=== PATIENT | male | born 1970 | race Caucasian/White ===

== ENCOUNTER 2019-09-24 21:48 | Inpatient (IN) | payer SELFPAY ==
[~2019-09-24] VITALS: Ht 185.4 cm; Wt 66.9 kg
[2019-09-24] MEDS ORDERED: cloNIDine HCL 0.1 MG TABLET PO ONE (22:30)
[2019-09-24] MEDS ORDERED: LABETALOL 20 MG/4 ML DISP.SYRIN. IVP ONE (22:30)
[2019-09-24 22:43] LABS: BASO # 0.1 x10^3/uL (0.0-0.2); BASO % 1 % (0-3); EOS # 0.1 x10^3/uL (0.0-0.7); EOS % 1 % (0-3); HEMATOCRIT 41.2 % (39.0-53.0); HEMOGLOBIN 14.1 g/dL (13.0-17.5); LYMPH # 2.7 x10^3/uL (1.0-4.8); LYMPH % 34 % (24-48); MEAN CORPUSCULAR HEMOGLOBIN 30 pg (25-35); MEAN CORPUSCULAR HGB CONC 34 g/dL (31-37); MEAN CORPUSCULAR VOLUME 87 fL (79-100); MONO # 0.7 x10^3/uL (0.0-1.1); MONO % 9 % (0-9); NEUT # 4.4 x10^3/uL (1.8-7.7); NEUT % 55 % (31-73); PLATELET COUNT 248 x10^3/uL (140-400); RED BLOOD COUNT 4.72 x10^6/uL (4.30-5.70); RED CELL DISTRIBUTION WIDTH 13.8 % (11.5-14.5)
[2019-09-24 22:55] LABS: CALCIUM 9.1 mg/dL (8.5-10.1); CREATININE 1.7 mg/dL (0.7-1.3); GFR 42.7; POTASSIUM 3.5 mmol/L (3.5-5.1)
[2019-09-24 23:01] LABS: ALBUMIN 3.7 g/dL (3.4-5.0); ALBUMIN/GLOBULIN RATIO 1.1 (1.0-1.7); MAGNESIUM 1.9 mg/dL (1.8-2.4); TOTAL BILIRUBIN 0.3 mg/dL (0.2-1.0); TOTAL PROTEIN 7.2 g/dL (6.4-8.2)
[2019-09-24] MEDS ORDERED: hydrALAZINE 20 MG/ML VIAL. IVP PRN (23:30)
[2019-09-24] MEDS ORDERED: ASPIRIN 325 MG TABLET PO ONE (23:30)
[2019-09-24] MEDS ORDERED: hydrALAZINE 20 MG/ML VIAL. IVP ONE (23:30)
--- NOTE | 2019-09-24 23:45 | PHYS DOC ---
Past Medical History Past Medical History: Bipolar, Hypertension, Schizophrenia Past Surgical History: Other Additional Past Surgical Histo: NECK SURGERY Smoking: Cigarettes Alcohol Use: None Drug Use: Methamphetamine Social History Narrative: METH OVER 7 YEARS AGO Adult General Chief Complaint Chief Complaint: HYPERTENSION HPI HPI 49-year-old male presents with report of elevated blood pressure. Patient had presented to [facility] for treatment of his schizophrenia. Reports they took his blood pressure and noted it significantly elevated. Patient does have a history of hypertension for which he was previously prescribed medication. Reports he has been off his medication for the last year. Denies headache. Denies chest pain. Review of Systems Review of Systems Constitutional: Denies fever or chills Eyes: Denies redness or eye pain HENT: Denies nasal congestion or sore throat Respiratory: Denies cough or shortness of breath Cardiovascular: Denies chest pain or palpitations GI: Denies abdominal pain, nausea, or vomiting : Denies dysuria or hematuria Musculoskeletal: Denies back pain or joint pain Integument: Denies rash or skin lesions Neurologic: Denies headache, focal weakness or sensory changes Complete systems were reviewed and found to be within normal limits, except as documented in this note. Current Medications Current Medications Current Medications Medications (Trade) Dose Ordered Sig/Julio Start Time Stop Time Status Last Admin Dose Admin Clonidine HCl (Catapres) 0.1 mg 1X ONCE 09/24/19 22:30 09/24/19 22:31 DC 09/24/19 22:44 0.1 MG Labetalol HCl (Normodyne Iv Push) 10 mg 1X ONCE 09/24/19 22:30 09/24/19 22:31 DC 09/24/19 22:45 10 MG Allergies Allergies Allergies Coded Allergies Type Severity Reaction Last Updated Verified codeine Allergy Intermediate 09/24/19 Yes Physical Exam Physical Exam Constitutional: Well developed, well nourished, no acute distress, non-toxic a ppearance HENT: Normocephalic, atraumatic, oropharynx moist Eyes: Conjunctiva normal, no discharge Neck: Normal range of motion, no tenderness, supple Cardiovascular: Heart rate normal, regular rhythm Lungs & Thorax: Bilateral breath sounds clear to auscultation, no wheezing Abdomen: Soft, no tenderness Skin: Warm, dry, no erythema, no rash Extremities: No tenderness, ROM intact, no edema Neurologic: Alert and oriented X 3, normal motor function, normal sensory function, no focal deficits noted Psychologic: Affect normal, judgement normal Current Patient Data Vital Signs Vital Signs Date Time Temp Pulse Resp B/P (MAP) Pulse Ox O2 Delivery O2 Flow Rate FiO2 09/24/19 22:45 62 193/110 09/24/19 22:02 98.3 20 97 Room Air 98.3 Lab Values Laboratory Tests Test 09/24/19 22:28 White Blood Count 8.0 x10^3/uL (4.0-11.0) Red Blood Count 4.72 x10^6/uL (4.30-5.70) Hemoglobin 14.1 g/dL (13.0-17.5) Hematocrit 41.2 % (39.0-53.0) Mean Corpuscular Volume 87 fL (79-100) Mean Corpuscular Hemoglobin 30 pg (25-35) Mean Corpuscular Hemoglobin Concent 34 g/dL (31-37) Red Cell Distribution Width 13.8 % (11.5-14.5) Platelet Count 248 x10^3/uL (140-400) Neutrophils (%) (Auto) 55 % (31-73) Lymphocytes (%) (Auto) 34 % (24-48) Monocytes (%) (Auto) 9 % (0-9) Eosinophils (%) (Auto) 1 % (0-3) Basophils (%) (Auto) 1 % (0-3) Neutrophils # (Auto) 4.4 x10^3/uL (1.8-7.7) Lymphocytes # (Auto) 2.7 x10^3/uL (1.0-4.8) Monocytes # (Auto) 0.7 x10^3/uL (0.0-1.1) Eosinophils # (Auto) 0.1 x10^3/uL (0.0-0.7) Basophils # (Auto) 0.1 x10^3/uL (0.0-0.2) Sodium Level 142 mmol/L (136-145) Potassium Level 3.5 mmol/L (3.5-5.1) Chloride Level 106 mmol/L (98-107) Carbon Dioxide Level 27 mmol/L (21-32) Anion Gap 9 (6-14) Blood Urea Nitrogen 24 mg/dL (8-26) Creatinine 1.7 mg/dL (0.7-1.3) H Estimated GFR (Cockcroft-Gault) 42.7 BUN/Creatinine Ratio 14 (6-20) Glucose Level 101 mg/dL (70-99) H Calcium Level 9.1 mg/dL (8.5-10.1) Magnesium Level 1.9 mg/dL (1.8-2.4) Total Bilirubin 0.3 mg/dL (0.2-1.0) Aspartate Amino Transferase (AST) 10 U/L (15-37) L Alanine Aminotransferase (ALT) 11 U/L (16-63) L Alkaline Phosphatase 61 U/L (46-116) Creatine Kinase 81 U/L (39-308) Creatine Kinase MB (Mass) 1.1 ng/mL (0.0-3.6) Creatine Kinase MB Relative Index 1.4 % (0-4) Troponin I Quantitative 0.154 ng/mL (0.000-0.055) Total Protein 7.2 g/dL (6.4-8.2) Albumin 3.7 g/dL (3.4-5.0) Albumin/Globulin Ratio 1.1 (1.0-1.7) Laboratory Tests 09/24/19 22:28 Laboratory Tests 09/24/19 22:28 EKG EKG @2238 Sinus bradycardia at 52bpm, J point elevation V2-V3, QRS 88ms, QT/QTc 434/406ms, nonspecific t wave inversion V5-V6 @2350 NSR at 79bpm, NO ST elevation, t wave inversion II, aVF, and V4-V6 Radiology/Procedures Radiology/Procedures [] Course & Med Decision Making Course & Med Decision Making Pertinent Lab studies reviewed. (See chart for details) Patient presents with report of elevated blood pressure. Denies symptoms. Reports history of hypertension for which patient has not been taking his medication. Denies headache or chest pain. EKG stable. Labs obtained and posted to chart. Renal insufficiency and indeterminate troponin noted. Aspirin provided. Blood pressure addressed with interval improvement. Patient requiring admission for further evaluation and treatment. Discussed with Dr. Blackman (hospitalist) who is in agreement with admission. Discussed findings and plan with patient, who acknowledges understanding and agreement. Dragon Disclaimer Dragon Disclaimer This electronic medical record was generated, in whole or in part, using a voice recognition dictation system. Departure Departure Impression: Primary Impression: Hypertensive emergency Additional Impressions: Elevated troponin Renal insufficiency Disposition: ADMITTED INPATIENT Admitting Physician: MARY ELLEN Stanley) Condition: GUARDED Referrals: NO PCP (PCP) Critical Care Time Critical care time was 30 minutes which includes time at bedside, spent in discussion of patient's care with specialists and/or family members, with interpretation of laboratory and/or radiological studies and is exclusive of procedures. Problem Qualifiers JASWANT BUCKLEY DO Sep 24, 2019 23:45
[2019-09-25] VITALS (8 sets, daily range): BP systolic 142–187; BP diastolic 85–110
[2019-09-25] MEDS ORDERED: PALI117D IM (00:37)
[2019-09-25] MEDS ORDERED: ACET325T9 PO (01:29)
[2019-09-25] MEDS ORDERED: IBUP-1027 PO (01:29)
--- NOTE | 2019-09-25 07:06 | EKG ---
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
--- NOTE | 2019-09-25 07:06 | EKG ---
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
[2019-09-25] MEDS ORDERED: FLU VAX QS 2019-20 (36MOS+)/PF 0.5 ML SYRINGE. VAX IM ONE (09:00)
[2019-09-25] MEDS ORDERED: ACETAMINOPHEN 325 MG TABLET. PO PRN (09:30)
[2019-09-25] MEDS ORDERED: hydrALAZINE 20 MG/ML VIAL. IVP PRN (09:30)
--- NOTE | 2019-09-25 10:39 | PDOC1 ---
History and Physical Date of Admission Date of Admission DATE: 09/25/19 TIME: 10:34 Identification/Chief Complaint Chief Complaint on his way to [facility] but BP high Source Source: Caregiver, Chart review, Patient History of Present Illness History of Present Illness HE is on his way to [facility] for BIpoal/schizophrenia, takes unknown mg of lexapro but SCARLETT high, 180s so admitted bec needs medical clearance prior to RSI, Pt not taking any BP meds, or at elast was supposed to but not taking for very long time, Im unable to get his home lexapro dose too No sxs for high BP,. appears flushed but denoes headache, BOV, napa pain etc HE occ drinks and smokes < 1 pack a day FAm hx HTN NO signif surgical hx Past Medical History Cardiovascular: HTN Psych: Bipolar, Schizophrenia Past Surgical History Past Surgical History: No pertinent history Family History Family History: High Cholestrol, Hypertension Social History Smoke: <1 pack per day ALCOHOL: occassional Current Medications Current Medications Current Medications Clonidine HCl (Catapres) 0.1 mg 1X ONCE PO Last administered on 09/24/19at 22:44; Start 09/24/19 at 22:30; Stop 09/24/19 at 22:31; Status DC Labetalol HCl (Normodyne Iv Push) 10 mg 1X ONCE IVP Last administered on 09/24/19at 22:45; Start 09/24/19 at 22:30; Stop 09/24/19 at 22:31; Status DC Aspirin (Justice Aspirin) 325 mg 1X ONCE PO Last administered on 09/24/19at 23:20; Start 09/24/19 at 23:30; Stop 09/24/19 at 23:31; Status DC Hydralazine HCl (Apresoline Inj) 20 mg 1X ONCE IVP Last administered on 09/24/19at 23:32; Start 09/24/19 at 23:30; Stop 09/24/19 at 23:31; Status DC Hydralazine HCl (Apresoline Inj) 10 mg PRN Q4HRS PRN IVP ELEVATED BP, SEE COMMENTS Last administered on 09/25/19at 09:06; Start 09/24/19 at 23:30; Stop 09/25/19 at 09:24; Status DC Influenza Virus Vaccine Quadrival (Afluria Quad 2019-20 (3yr Up) Syringe) 0.5 ml ONCE ONCE VAX IM Last administered on 09/25/19at 09:07; Start 09/25/19 at 09:00; Stop 09/25/19 at 09:01; Status DC Hydralazine HCl (Apresoline Inj) 10 mg PRN Q4HRS PRN IVP ELEVATED BP, SEE COMMENTS; Start 09/25/19 at 09:30 Acetaminophen (Tylenol) 650 mg PRN Q6HRS PRN PO PAIN; Start 09/25/19 at 09:30 Active Scripts Active Reported Tylenol (Acetaminophen) 325 Mg Tablet 650 Mg PO PRN Q6HRS PRN Ibuprofen 400 Mg Tablet 400 Mg PO PRN Q6HRS PRN Invega Sustenna (Paliperidone Palmitate) 117 Mg/0.75 Ml Disp.syrin 0.75 Ml IM QMONTH 30 Days Allergies Allergies: Coded Allergies: codeine (Verified Allergy, Intermediate, 09/24/19) ROS Review of System neg 14 pt reviewed Physical Exam General: Alert, Oriented X3, Cooperative, No acute distress, Other (ppears flushed) HEENT: PERRLA Lungs: Clear to auscultation, Normal air movement Heart: S1S2, RRR, no thrills, no rubs, no gallops, no murmurs Cardiovascular: S1, S2 Abdomen: Normal bowel sounds, Soft, No tenderness, No hepatosplenomegaly, No masses Male Genitals Exam: normal genitalia, normal prostate Rectal Exam: not examined PELVIC: Nml ext genitalia Extremities: No clubbing, No cyanosis, No edema, Normal pulses, No tenderness/swelling Skin: No rashes, No breakdown, No significant lesion Neuro: Normal gait, Normal speech, Strength at 5/5 X4 ext, Normal tone, Sensation intact, Cranial nerves 3-12 NL, Reflexes 2+ Vitals Vitals Vital Signs Date Time Temp Pulse Resp B/P (MAP) Pulse Ox O2 Delivery O2 Flow Rate FiO2 09/25/19 09:06 60 187/110 09/25/19 07:00 97.7 20 99 Room Air 97.7 Labs Labs Laboratory Tests Test 09/24/19 22:28 09/25/19 03:33 09/25/19 05:48 09/25/19 06:30 White Blood Count 8.0 x10^3/uL (4.0-11.0) Red Blood Count 4.72 x10^6/uL (4.30-5.70) Hemoglobin 14.1 g/dL (13.0-17.5) Hematocrit 41.2 % (39.0-53.0) Mean Corpuscular Volume 87 fL (79-100) Mean Corpuscular Hemoglobin 30 pg (25-35) Mean Corpuscular Hemoglobin Concent 34 g/dL (31-37) Red Cell Distribution Width 13.8 % (11.5-14.5) Platelet Count 248 x10^3/uL (140-400) Neutrophils (%) (Auto) 55 % (31-73) Lymphocytes (%) (Auto) 34 % (24-48) Monocytes (%) (Auto) 9 % (0-9) Eosinophils (%) (Auto) 1 % (0-3) Basophils (%) (Auto) 1 % (0-3) Neutrophils # (Auto) 4.4 x10^3/uL (1.8-7.7) Lymphocytes # (Auto) 2.7 x10^3/uL (1.0-4.8) Monocytes # (Auto) 0.7 x10^3/uL (0.0-1.1) Eosinophils # (Auto) 0.1 x10^3/uL (0.0-0.7) Basophils # (Auto) 0.1 x10^3/uL (0.0-0.2) Sodium Level 142 mmol/L (136-145) Potassium Level 3.5 mmol/L (3.5-5.1) Chloride Level 106 mmol/L (98-107) Carbon Dioxide Level 27 mmol/L (21-32) Anion Gap 9 (6-14) Blood Urea Nitrogen 24 mg/dL (8-26) Creatinine 1.7 mg/dL (0.7-1.3) Estimated GFR (Cockcroft-Gault) 42.7 BUN/Creatinine Ratio 14 (6-20) Glucose Level 101 mg/dL (70-99) Calcium Level 9.1 mg/dL (8.5-10.1) Magnesium Level 1.9 mg/dL (1.8-2.4) Total Bilirubin 0.3 mg/dL (0.2-1.0) Aspartate Amino Transf (AST/SGOT) 10 U/L (15-37) Alanine Aminotransferase (ALT/SGPT) 11 U/L (16-63) Alkaline Phosphatase 61 U/L (46-116) Creatine Kinase 81 U/L (39-308) Creatine Kinase MB (Mass) 1.1 ng/mL (0.0-3.6) Creatine Kinase MB Relative Index 1.4 % (0-4) Troponin I Quantitative 0.154 ng/mL (0.000-0.055) 0.173 ng/mL (0.000-0.055) 0.201 ng/mL (0.000-0.055) Total Protein 7.2 g/dL (6.4-8.2) Albumin 3.7 g/dL (3.4-5.0) Albumin/Globulin Ratio 1.1 (1.0-1.7) Triglycerides Level 184 mg/dL (0-150) Cholesterol Level 160 mg/dL (0-200) LDL Cholesterol, Calculated 83 mg/dL (0-100) VLDL Cholesterol, Calculated 37 mg/dL (0-40) Non-HDL Cholesterol Calculated 120 mg/dL (0-129) HDL Cholesterol 40 mg/dL (40-60) Cholesterol/HDL Ratio 4.0 Laboratory Tests Test 09/24/19 22:28 09/25/19 03:33 09/25/19 05:48 09/25/19 06:30 White Blood Count 8.0 x10^3/uL (4.0-11.0) Red Blood Count 4.72 x10^6/uL (4.30-5.70) Hemoglobin 14.1 g/dL (13.0-17.5) Hematocrit 41.2 % (39.0-53.0) Mean Corpuscular Volume 87 fL (79-100) Mean Corpuscular Hemoglobin 30 pg (25-35) Mean Corpuscular Hemoglobin Concent 34 g/dL (31-37) Red Cell Distribution Width 13.8 % (11.5-14.5) Platelet Count 248 x10^3/uL (140-400) Neutrophils (%) (Auto) 55 % (31-73) Lymphocytes (%) (Auto) 34 % (24-48) Monocytes (%) (Auto) 9 % (0-9) Eosinophils (%) (Auto) 1 % (0-3) Basophils (%) (Auto) 1 % (0-3) Neutrophils # (Auto) 4.4 x10^3/uL (1.8-7.7) Lymphocytes # (Auto) 2.7 x10^3/uL (1.0-4.8) Monocytes # (Auto) 0.7 x10^3/uL (0.0-1.1) Eosinophils # (Auto) 0.1 x10^3/uL (0.0-0.7) Basophils # (Auto) 0.1 x10^3/uL (0.0-0.2) Sodium Level 142 mmol/L (136-145) Potassium Level 3.5 mmol/L (3.5-5.1) Chloride Level 106 mmol/L (98-107) Carbon Dioxide Level 27 mmol/L (21-32) Anion Gap 9 (6-14) Blood Urea Nitrogen 24 mg/dL (8-26) Creatinine 1.7 mg/dL (0.7-1.3) Estimated GFR (Cockcroft-Gault) 42.7 BUN/Creatinine Ratio 14 (6-20) Glucose Level 101 mg/dL (70-99) Calcium Level 9.1 mg/dL (8.5-10.1) Magnesium Level 1.9 mg/dL (1.8-2.4) Total Bilirubin 0.3 mg/dL (0.2-1.0) Aspartate Amino Transf (AST/SGOT) 10 U/L (15-37) Alanine Aminotransferase (ALT/SGPT) 11 U/L (16-63) Alkaline Phosphatase 61 U/L (46-116) Creatine Kinase 81 U/L (39-308) Creatine Kinase MB (Mass) 1.1 ng/mL (0.0-3.6) Creatine Kinase MB Relative Index 1.4 % (0-4) Troponin I Quantitative 0.154 ng/mL (0.000-0.055) 0.173 ng/mL (0.000-0.055) 0.201 ng/mL (0.000-0.055) Total Protein 7.2 g/dL (6.4-8.2) Albumin 3.7 g/dL (3.4-5.0) Albumin/Globulin Ratio 1.1 (1.0-1.7) Triglycerides Level 184 mg/dL (0-150) Cholesterol Level 160 mg/dL (0-200) LDL Cholesterol, Calculated 83 mg/dL (0-100) VLDL Cholesterol, Calculated 37 mg/dL (0-40) Non-HDL Cholesterol Calculated 120 mg/dL (0-129) HDL Cholesterol 40 mg/dL (40-60) Cholesterol/HDL Ratio 4.0 VTE Prophylaxis Ordered VTE Prophylaxis Devices: Yes VTE Pharmacological Prophylaxi: Yes Assessment/Plan Assessment/Plan 1. Accelerated HTN 2. Bipolar/schizophrenia 3. SMOker, occ drinker PLAN: Start lisinopril 10 and hctz 12.5 Hydralazine prn CArds consulted Ok to resume lexapro Edgardo patch MAyc heck etoh levels - appears flushed Librium prn MARSHA GAONA MD Sep 25, 2019 10:39
[2019-09-25] MEDS ORDERED: chlordiazePOXIDE HCL 25 MG CAPSULE PO PRN (10:45)
[2019-09-25] MEDS: LISINOPRIL 10 MG TABLET PO SCH (11:19)
[2019-09-25] MEDS: hydroCHLOROthiazide 12.5 MG CAPSULE PO SCH (11:19)
--- NOTE | 2019-09-25 13:17 | PDOC2 ---
CARDIAC CONSULT DATE OF CONSULT Date of Consult DATE: 09/25/19 TIME: 12:48 REASON FOR CONSULT Reason for Consult: HTN emergence, elevated trop REFERRING PHYSICIAN Referring Physician: elevated trop SOURCE Source: Chart review, Patient HISTORY OF PRESENT ILLNESS HISTORY OF PRESENT ILLNESS This is a pleasant 49 yo male admitted for complains of high blood pressure. He was getting checked in in a support facility for he has bipolar and basically homeless and noted that his BP was significantly high. Reports juwan he has been off his BP meds for about a yr. He was at [facility] last year when he was told that he had a stroke. No hx of CAD or any arrhythmias. So far he has not been having any chest pain, SOA, no exertional CP nor WILKERSON. Denies any palpitations, n/v, jaw or shoulder discomfort. He has been having throbbing intermittent WALKER which is now better since his BP was controlled. PAST MEDICAL HISTORY Cardiovascular: HTN Pulmonary: No pertinent hx CENTRAL NERVOUS SYSTEM: CVA GI: No pertinent hx Heme/Onc: No pertinent hx Hepatobiliary: No pertinent hx Psych: Bipolar, Schizophrenia Musculoskeletal: Osteoarthritis Rheumatologic: No pertinent hx Infectious disease: No pertinent hx ENT: No pertinent hx Renal/: No pertinent hx Endocrine: No pertinent hx Dermatology: No pertinent hx PAST SURGICAL HISTORY Past Surgical History: Arthroscopy (left knee), Other (neck and wrist surgery) FAMILY HISTORY Family History: Coronary Artery Disease (grandmother) SOCIAL HISTORY Smoke: 1 pack per day ALCOHOL: none Drugs: None Lives: Alone CURRENT MEDICATIONS CURRENT MEDICATIONS Current Medications Medications (Trade) Dose Ordered Sig/Julio Route PRN Reason Start Time Stop Time Status Last Admin Dose Admin Clonidine HCl (Catapres) 0.1 mg 1X ONCE PO 09/24/19 22:30 09/24/19 22:31 DC 09/24/19 22:44 Labetalol HCl (Normodyne Iv Push) 10 mg 1X ONCE IVP 09/24/19 22:30 09/24/19 22:31 DC 09/24/19 22:45 Aspirin (Justice Aspirin) 325 mg 1X ONCE PO 09/24/19 23:30 09/24/19 23:31 DC 09/24/19 23:20 Hydralazine HCl (Apresoline Inj) 20 mg 1X ONCE IVP 09/24/19 23:30 09/24/19 23:31 DC 09/24/19 23:32 Hydralazine HCl (Apresoline Inj) 10 mg PRN Q4HRS PRN IVP ELEVATED BP, SEE COMMENTS 09/24/19 23:30 09/25/19 09:24 DC 09/25/19 09:06 Influenza Virus Vaccine Quadrival (Afluria Quad 2019-20 (3yr Up) Syringe) 0.5 ml ONCE ONCE VAX IM 09/25/19 09:00 09/25/19 09:01 DC 09/25/19 09:07 Lisinopril (Prinivil) 10 mg DAILY PO 09/25/19 10:45 09/25/19 11:19 Hydrochlorothiazide (Microzide) 12.5 mg DAILY PO 09/25/19 10:45 09/25/19 11:19 ALLERGIES ALLERGIES: Coded Allergies: codeine (Verified Allergy, Intermediate, 09/24/19) ROS Review of System 14 point ROS evaluated with pertinent positives noted per HPI PHYSICAL EXAM General: Alert, Oriented X3, Cooperative, No acute distress HEENT: Atraumatic, Mucous membr. moist/pink Lungs: Clear to auscultation, Normal air movement Heart: Regular rate (SR), Normal S1, Normal S2, Other (S4; 3/6 systolic murmur to SELINA border) Abdomen: Soft, No tenderness Extremities: No cyanosis, No edema Skin: No breakdown, No significant lesion Neuro: Normal speech, Sensation intact Psych/Mental Status: Mental status NL, Mood NL MUSCULOSKELETAL: Osteoarthritic changes both hands VITALS/I&O VITALS/I&O: Vital Signs Date Time Temp Pulse Resp B/P (MAP) Pulse Ox O2 Delivery O2 Flow Rate FiO2 09/25/19 11:19 72 148/99 09/25/19 11:16 97.4 18 98 Room Air 97.4 I & O 09/24/19 09/24/19 09/25/19 15:00 23:00 07:00 Intake Total 1300 ml Balance 1300 ml LABS Lab: Laboratory Tests Test 09/24/19 22:28 09/25/19 03:33 09/25/19 05:48 09/25/19 06:30 White Blood Count 8.0 x10^3/uL (4.0-11.0) Red Blood Count 4.72 x10^6/uL (4.30-5.70) Hemoglobin 14.1 g/dL (13.0-17.5) Hematocrit 41.2 % (39.0-53.0) Mean Corpuscular Volume 87 fL (79-100) Mean Corpuscular Hemoglobin 30 pg (25-35) Mean Corpuscular Hemoglobin Concent 34 g/dL (31-37) Red Cell Distribution Width 13.8 % (11.5-14.5) Platelet Count 248 x10^3/uL (140-400) Neutrophils (%) (Auto) 55 % (31-73) Lymphocytes (%) (Auto) 34 % (24-48) Monocytes (%) (Auto) 9 % (0-9) Eosinophils (%) (Auto) 1 % (0-3) Basophils (%) (Auto) 1 % (0-3) Neutrophils # (Auto) 4.4 x10^3/uL (1.8-7.7) Lymphocytes # (Auto) 2.7 x10^3/uL (1.0-4.8) Monocytes # (Auto) 0.7 x10^3/uL (0.0-1.1) Eosinophils # (Auto) 0.1 x10^3/uL (0.0-0.7) Basophils # (Auto) 0.1 x10^3/uL (0.0-0.2) Sodium Level 142 mmol/L (136-145) Potassium Level 3.5 mmol/L (3.5-5.1) Chloride Level 106 mmol/L (98-107) Carbon Dioxide Level 27 mmol/L (21-32) Anion Gap 9 (6-14) Blood Urea Nitrogen 24 mg/dL (8-26) Creatinine 1.7 mg/dL (0.7-1.3) H Estimated GFR (Cockcroft-Gault) 42.7 BUN/Creatinine Ratio 14 (6-20) Glucose Level 101 mg/dL (70-99) H Calcium Level 9.1 mg/dL (8.5-10.1) Magnesium Level 1.9 mg/dL (1.8-2.4) Total Bilirubin 0.3 mg/dL (0.2-1.0) Aspartate Amino Transferase (AST) 10 U/L (15-37) L Alanine Aminotransferase (ALT) 11 U/L (16-63) L Alkaline Phosphatase 61 U/L (46-116) Creatine Kinase 81 U/L (39-308) Creatine Kinase MB (Mass) 1.1 ng/mL (0.0-3.6) Creatine Kinase MB Relative Index 1.4 % (0-4) Troponin I Quantitative 0.154 ng/mL (0.000-0.055) 0.173 ng/mL (0.000-0.055) 0.201 ng/mL (0.000-0.055) Total Protein 7.2 g/dL (6.4-8.2) Albumin 3.7 g/dL (3.4-5.0) Albumin/Globulin Ratio 1.1 (1.0-1.7) Triglycerides Level 184 mg/dL (0-150) H Cholesterol Level 160 mg/dL (0-200) LDL Cholesterol, Calculated 83 mg/dL (0-100) VLDL Cholesterol, Calculated 37 mg/dL (0-40) Non-HDL Cholesterol Calculated 120 mg/dL (0-129) HDL Cholesterol 40 mg/dL (40-60) Cholesterol/HDL Ratio 4.0 Ethyl Alcohol Level < 10 mg/dL (0-10) Laboratory Tests 09/24/19 22:28 Laboratory Tests 09/24/19 22:28 ASSESSMENT/PLAN ASSESSMENT/PLAN 1. HTN urgency: no coverage for about a yr. Improving 2. Elevated troponin: peaked at 0.2. Suspect demand mediated. EKG SR with LV strain pattern, no cardiac symptoms. 3. Suspect CKD 3: 4. Hx of CVA 5. Bipolar disorder: per PCP 6. Noncompliance 7. Homelessness 8. Tobaccoism Recommendations 1. TSH. TTE. EKG 2. Start on ASA. Continue lisinopril/HCTZ and add coreg. and lipitor 3. Will obtain [facility] records. 4. Smoking cessation. Discussed compliance 5. Will consider for outpt stress test. ZHANNA CAHPA FRETTED INSTRUMENT REPAIRER Sep 25, 2019 13:17
[2019-09-25 13:31] LABS: CREATININE 1.2 mg/dL (0.7-1.3); GFR 63.8; POTASSIUM 3.3 mmol/L (3.5-5.1)
--- NOTE | 2019-09-25 14:16 | NUR ---
SS following for discharge planning. SS reviewed pt chart and discussed with pt's RN. Pt is self pay pt. HCFS following for self pay status. Pt went to ([facility] [address] [place] [id number], ; fax [phone], yesterday and was sent to the hospital due to medical instability. SS and pt's RN contacted [facility] and confirmed that pt can return when medically stable. SS will continue to follow for discharge planning.
--- NOTE | 2019-09-25 14:18 | CARD ---
MR#: [id number] Date of Study: 09/25/2019 Ordering Physician: ZHANNA CHAPA, Referring Physician: ZHANNA CHAPA, Tech: Daxa Carlos [facility] APPROVED REPORT EXAM: Two-dimensional and M-mode echocardiogram with Doppler and color Doppler. Other Information Quality : AverageHR: 65bpm Rhythm : NSRTechnically limited study due to smoking. INDICATION Elev trop 2D DIMENSIONS RVDd2.9 (2.9-3.5cm)Left Atrium(2D)2.8 (1.6-4.0cm) IVSd1.5 (0.7-1.1cm)Aortic Root(2D)3.3 (2.0-3.7cm) LVDd4.4 (3.9-5.9cm)LVOT Diameter2.0 (1.8-2.4cm) PWd1.2 (0.7-1.1cm)LVDs3.2 (2.5-4.0cm) FS (%) 26.3 %SV45.3 ml LVEF(%)51.8 (>50%) Aortic Valve AoV Peak Jose.181.0cm/sAoV VTI31.0cm AO Peak GR.13.1mmHgLVOT Peak Ojse.142.7cm/s AO Mean GR.8mmHgAVA (VMAX)2.56cm2 HANH (VTI)2.60cm2 Mitral Valve MV E Qbijdapm00.9cm/sMV DECEL JINI594cy MV A Qkmeejqs041.4cm/sE/A Ratio0.8 Pulmonary Valve PV Peak Frubljfi297.7cm/s Tricuspid Valve TR P. Iskcozij157wd/sRAP NGNZPWYA2riHv TR Peak Gr.34njIaMLNC04vjTh LEFT VENTRICLE The left ventricle is normal size. There is mild concentric left ventricular hypertrophy. The left ve ntricular systolic function is normal. The Ejection Fraction is 60%. There is normal LV segmental wal l motion. Transmitral Doppler flow pattern is Grade I-abnormal relaxation pattern. RIGHT VENTRICLE The right ventricle is normal size. There is normal right ventricular wall thickness. The right ventr icular systolic function is normal. ATRIA The left atrium size is normal. The right atrium size is normal. The interatrial septum is intact wit h no evidence for an atrial septal defect or patent foramen ovale as noted on 2-D or Doppler imaging. AORTIC VALVE The aortic valve is normal in structure and function. The aortic valve is trileaflet. Doppler and Col or Flow revealed trace aortic regurgitation. There is no significant aortic valvular stenosis. There is no aortic valvular vegetation. MITRAL VALVE The mitral valve is normal in structure and function. There is no evidence of mitral valve prolapse. There is no mitral valve stenosis. Doppler and Color-flow revealed trace mitral regurgitation. TRICUSPID VALVE The tricuspid valve is normal in structure and function. Doppler and Color Flow revealed trace tricus pid regurgitation. The PA pressure was estimated at 32 mmHg. There is no tricuspid valve prolapse or vegetation. There is no tricuspid valve stenosis. PULMONIC VALVE The pulmonic valve is not well visualized. GREAT VESSELS The aortic root is normal in size. The ascending aorta is normal in size. The IVC is normal in size a nd collapses >50% with inspiration. PERICARDIAL EFFUSION There is no evidence of significant pericardial effusion. Critical Notification Critical Value: No <Conclusion> The left ventricular systolic function is normal. The Ejection Fraction is 60%. There is normal LV segmental wall motion. Transmitral Doppler flow pattern is Grade I-abnormal relaxation pattern. Trace mitral regurgitation. Trace tricuspid regurgitation. The PA pressure was estimated at 32 mmHg. There is no evidence of significant pericardial effusion. Signed by : Marcel Poole, Electronically Approved : 09/25/2019 14:18:06
--- NOTE | 2019-09-25 14:32 | EKG ---
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
[2019-09-25] MEDS ORDERED: POTASSIUM CHLORIDE 20 MEQ TABLET.ER. PO ONE (17:00)
[2019-09-25] MEDS: CARVEDILOL 6.25 MG TABLET. PO SCH (17:39)
[2019-09-25] MEDS: ATORVASTATIN CALCIUM 20 MG TABLET PO SCH (20:13)
[2019-09-26 02:02] VITALS: BP 159/91
[2019-09-26 07:25] VITALS: BP 180/110
[2019-09-26] MEDS: CARVEDILOL 6.25 MG TABLET. PO SCH ×2 (09:08→16:50)
[2019-09-26] MEDS: LISINOPRIL 10 MG TABLET PO SCH (09:08)
[2019-09-26] MEDS: hydroCHLOROthiazide 12.5 MG CAPSULE PO SCH (09:08)
[2019-09-26] MEDS: ASPIRIN ENTERIC COATED 81 MG TABLET.DR. PO SCH (09:08)
[2019-09-26 10:26] VITALS: BP 170/100
--- NOTE | 2019-09-26 12:07 | PDOC ---
CARDIO Progress Notes Date and Time Date of Service 09/26/2019 Time of Evaluation 1000 Subjective Subjective: No Chest Pain, No shortness of breath, No Palpitations Vitals Vitals Vital Signs Date Time Temp Pulse Resp B/P (MAP) Pulse Ox O2 Delivery O2 Flow Rate FiO2 09/26/19 10:26 99.2 78 18 170/100 (123) 98 Room Air 99.2 Weight Weight [ ] Input and Output Intake and Output Intake and Output 09/26/19 07:00 Intake Total 540 ml Output Total 2100 ml Balance -1560 ml Intake Oral 540 ml Output Urine Total 2100 ml # Voids 2 Physical Exam HEENT: Neck Supple W Full Motion Chest: Symmetric LUNGS: Clear to Auscultation Heart: S1S2, RRR (SR) Abdomen: Soft N/T Extremities: No Calf Tenderness Neurology: alert, oriented, follow commands Assessment Assessment 1. HTN urgency: no coverage for about a yr. labile.Hyperensive heart disease. EF and WM nml 2. Elevated troponin: peaked at 0.2. Suspect demand mediated. EKG SR with LV strain pattern, no cardiac symptoms. 3. Suspect CKD 3: 4. Hx of CVA 5. Bipolar disorder: per PCP 6. Noncompliance 7. Homelessness 8. Tobaccoism Recommendations 1. ASA. lipitor 2. Maximize lisinopril and continue HCTZ. Decrease coreg due to bradycardiac episodes. May add norvasc if BP remains labile 3. No records from [facility] records. Will review if available 4. Smoking cessation. Discussed compliance 5. Will consider for outpt stress test. 6. SS consult, will need outreach referral for PCP ZHANNA CHAPA APRN Sep 26, 2019 12:06
[2019-09-26] MEDS ORDERED: LISINOPRIL 10 MG TABLET PO ONE (12:15)
--- NOTE | 2019-09-26 12:26 | PDOC ---
[facility] PROGRESS NOTE Chief Complaint Chief Complaint HTN urgency Elevated troponin Suspect CKD 3 Hx of CVA Bipolar disorder Noncompliance Homelessness Tobaccoism History of Present Illness History of Present Illness 09/26/2019 Pt was seen and examined. Reports that he presented to the ER yesterday because of SI and they found that his BP was high on the admission. Pt reports having head pain in the occipital region of his head when the event occurred but was otherwise asymptomatic. Pt reports that he has done well with [facility] in the past and would like to restart it. 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 Reports feeling better since being hospitalized, is still willing to go to [facility] once [facility] is restarted. Vitals/I&O Vitals/I&O: Vital Signs Date Time Temp Pulse Resp B/P (MAP) Pulse Ox O2 Delivery O2 Flow Rate FiO2 09/26/19 12:24 78 170/100 09/26/19 10:26 99.2 18 98 Room Air 99.2 I & O 09/25/19 09/25/19 09/26/19 14:59 22:59 06:59 Intake Total 540 ml Output Total 400 ml 400 ml 1300 ml Balance -400 ml 140 ml -1300 ml Physical Exam General: Alert, Oriented X3, Cooperative, No acute distress Heart: Regular rate (SR), Normal S1, Normal S2, Other (S4; 3/6 systolic murmur to SELINA border) Lungs: Clear Abdomen: Normal bowel sounds, Soft, No tenderness Extremities: No cyanosis, No edema Skin: No breakdown, No significant lesion Review of Systems Review of Systems: Denies CP Denies SOB Denies N/V/D Assessment and Plan Assessmemt and Plan HTN urgency Elevated troponin Suspect CKD 3 Hx of CVA Bipolar disorder Noncompliance Homelessness Tobaccoism Plan: 1) Continue increasing Lisinopril and HCTZ with augustine off coreg per cardiology recommendations 2) guest services representative consult to help address pt's lack of access to care and homelessness 3) Outpatient psychiatric f/u with [facility] placement [pt has done well with [facility] in the past] 4) Cardiac monitoring 5) PT/OT 6) Full code Comment Review of Relevant I have reviewed the following items lea (where applicable) has been applied. Medications: Current Medications Medications (Trade) Dose Ordered Sig/Julio Route PRN Reason Start Time Stop Time Status Last Admin Dose Admin Carvedilol (Coreg) 6.25 mg BIDWMEALS PO 09/25/19 17:00 09/26/19 12:03 DC 09/26/19 09:08 Aspirin (Ecotrin) 81 mg DAILYWBKFT PO 09/26/19 08:00 09/26/19 09:08 Atorvastatin Calcium (Lipitor) 20 mg QHS PO 09/25/19 21:00 09/25/19 20:13 Potassium Chloride (Klor-Con) 40 meq 1X ONCE PO 09/25/19 17:00 09/25/19 17:01 DC 09/25/19 17:39 Lisinopril (Prinivil) 30 mg 1X ONCE PO 09/26/19 12:15 09/26/19 12:16 DC 09/26/19 12:24 AIDAN MARTINEZ III DO Sep 26, 2019 12:26
--- NOTE | 2019-09-26 14:48 | NUR ---
SS following up with discharge planning. Pt is from [facility] ([facility] ; fax [phone], and will return to [facility] when medically stable for discharge. Packet placed on chart. Pt's RN will need to call report to [facility] and fax updated clinical and labs from day of discharge. Pt will need cab pass to return. Pt's RN notified. SS met with pt and provided resources to include Good RX card, $4 medication list, information on [facility], information on [facility], and community resource guide. SS will continue to follow for discharge planning.
[2019-09-26 15:02] VITALS: BP 180/105
[2019-09-26 19:32] VITALS: BP 165/97
[2019-09-26] MEDS: ATORVASTATIN CALCIUM 20 MG TABLET PO SCH (20:04)
[2019-09-26 23:21] VITALS: BP 168/103
[2019-09-27] VITALS (8 sets, daily range): BP systolic 138–192; BP diastolic 90–112
[2019-09-27 05:27] LABS: BASO # 0.1 x10^3/uL (0.0-0.2); BASO % 1 % (0-3); EOS # 0.2 x10^3/uL (0.0-0.7); EOS % 3 % (0-3); HEMATOCRIT 42.6 % (39.0-53.0); HEMOGLOBIN 14.5 g/dL (13.0-17.5); LYMPH # 2.7 x10^3/uL (1.0-4.8); LYMPH % 38 % (24-48); MEAN CORPUSCULAR HEMOGLOBIN 30 pg (25-35); MEAN CORPUSCULAR HGB CONC 34 g/dL (31-37); MEAN CORPUSCULAR VOLUME 88 fL (79-100); MONO # 0.6 x10^3/uL (0.0-1.1); MONO % 9 % (0-9); NEUT # 3.6 x10^3/uL (1.8-7.7); NEUT % 49 % (31-73); PLATELET COUNT 245 x10^3/uL (140-400); RED BLOOD COUNT 4.83 x10^6/uL (4.30-5.70); RED CELL DISTRIBUTION WIDTH 14.1 % (11.5-14.5); WHITE BLOOD COUNT 7.2 x10^3/uL (4.0-11.0)
[2019-09-27 05:53] LABS: ALBUMIN 3.5 g/dL (3.4-5.0); CALCIUM 9.1 mg/dL (8.5-10.1); CREATININE 1.2 mg/dL (0.7-1.3); GFR 63.8; POTASSIUM 3.8 mmol/L (3.5-5.1); TOTAL BILIRUBIN 0.3 mg/dL (0.2-1.0); TOTAL PROTEIN 7.1 g/dL (6.4-8.2)
[2019-09-27] MEDS ORDERED: HYDR12.575 PO (07:56)
[2019-09-27] MEDS ORDERED: LISI-130 PO (07:56)
[2019-09-27] MEDS ORDERED: CARV6.2511 PO (07:56)
[2019-09-27] MEDS ORDERED: ATOR20TA58 PO (07:56)
[2019-09-27] MEDS ORDERED: CARV3.12 PO (07:57)
[2019-09-27] MEDS ORDERED: HYDR-2145 PO (07:57)
[2019-09-27] MEDS ORDERED: LABETALOL 20 MG/4 ML DISP.SYRIN. IVP PRN (08:00)
[2019-09-27] MEDS ORDERED: hydroCHLOROthiazide 12.5 MG CAPSULE PO SCH (08:00)
[2019-09-27] MEDS ORDERED: LABETALOL 20 MG/4 ML DISP.SYRIN. IVP ONE (08:00)
[2019-09-27] MEDS: NICOTINE 21MG PATCH. TD PRN (09:04)
[2019-09-27] MEDS: hydroCHLOROthiazide 25 MG TABLET PO SCH (09:04)
[2019-09-27] MEDS: ASPIRIN ENTERIC COATED 81 MG TABLET.DR. PO SCH (09:05)
[2019-09-27] MEDS: LISINOPRIL 20 MG TABLET PO SCH (09:05)
[2019-09-27] MEDS: CARVEDILOL 6.25 MG TABLET. PO SCH ×2 (09:05→17:23)
--- NOTE | 2019-09-27 09:06 | PDOC3 ---
Discharge Summary Visit Information Date of Admission: Sep 25, 2019 Date of Discharge: Sep 27, 2019 Admitting Diagnosis Comment: 1. Accelerated HTN, normal echo 2. Bipolar/schizophrenia 3. SMOker, occ drinker Brief Hospital Course Allergies Allergies Coded Allergies Type Severity Reaction Last Updated Verified codeine Allergy Intermediate 09/24/19 Yes Vital Signs Vital Signs Date Time Temp Pulse Resp B/P (MAP) Pulse Ox O2 Delivery O2 Flow Rate FiO2 09/27/19 07:00 97.2 66 164/98 (120) 98 Room Air 97.2 09/27/19 03:27 16 Lab Results Laboratory Tests Test 09/27/19 05:00 White Blood Count 7.2 x10^3/uL (4.0-11.0) Red Blood Count 4.83 x10^6/uL (4.30-5.70) Hemoglobin 14.5 g/dL (13.0-17.5) Hematocrit 42.6 % (39.0-53.0) Mean Corpuscular Volume 88 fL (79-100) Mean Corpuscular Hemoglobin 30 pg (25-35) Mean Corpuscular Hemoglobin Concent 34 g/dL (31-37) Red Cell Distribution Width 14.1 % (11.5-14.5) Platelet Count 245 x10^3/uL (140-400) Neutrophils (%) (Auto) 49 % (31-73) Lymphocytes (%) (Auto) 38 % (24-48) Monocytes (%) (Auto) 9 % (0-9) Eosinophils (%) (Auto) 3 % (0-3) Basophils (%) (Auto) 1 % (0-3) Neutrophils # (Auto) 3.6 x10^3/uL (1.8-7.7) Lymphocytes # (Auto) 2.7 x10^3/uL (1.0-4.8) Monocytes # (Auto) 0.6 x10^3/uL (0.0-1.1) Eosinophils # (Auto) 0.2 x10^3/uL (0.0-0.7) Basophils # (Auto) 0.1 x10^3/uL (0.0-0.2) Sodium Level 138 mmol/L (136-145) Potassium Level 3.8 mmol/L (3.5-5.1) Chloride Level 104 mmol/L (98-107) Carbon Dioxide Level 23 mmol/L (21-32) Anion Gap 11 (6-14) Blood Urea Nitrogen 22 mg/dL (8-26) Creatinine 1.2 mg/dL (0.7-1.3) Estimated GFR (Cockcroft-Gault) 63.8 BUN/Creatinine Ratio 18 (6-20) Glucose Level 95 mg/dL (70-99) Calcium Level 9.1 mg/dL (8.5-10.1) Total Bilirubin 0.3 mg/dL (0.2-1.0) Aspartate Amino Transf (AST/SGOT) 9 U/L (15-37) Alanine Aminotransferase (ALT/SGPT) 7 U/L (16-63) Alkaline Phosphatase 62 U/L (46-116) Total Protein 7.1 g/dL (6.4-8.2) Albumin 3.5 g/dL (3.4-5.0) Albumin/Globulin Ratio 1.0 (1.0-1.7) Laboratory Tests Test 09/27/19 05:00 White Blood Count 7.2 x10^3/uL (4.0-11.0) Red Blood Count 4.83 x10^6/uL (4.30-5.70) Hemoglobin 14.5 g/dL (13.0-17.5) Hematocrit 42.6 % (39.0-53.0) Mean Corpuscular Volume 88 fL (79-100) Mean Corpuscular Hemoglobin 30 pg (25-35) Mean Corpuscular Hemoglobin Concent 34 g/dL (31-37) Red Cell Distribution Width 14.1 % (11.5-14.5) Platelet Count 245 x10^3/uL (140-400) Neutrophils (%) (Auto) 49 % (31-73) Lymphocytes (%) (Auto) 38 % (24-48) Monocytes (%) (Auto) 9 % (0-9) Eosinophils (%) (Auto) 3 % (0-3) Basophils (%) (Auto) 1 % (0-3) Neutrophils # (Auto) 3.6 x10^3/uL (1.8-7.7) Lymphocytes # (Auto) 2.7 x10^3/uL (1.0-4.8) Monocytes # (Auto) 0.6 x10^3/uL (0.0-1.1) Eosinophils # (Auto) 0.2 x10^3/uL (0.0-0.7) Basophils # (Auto) 0.1 x10^3/uL (0.0-0.2) Sodium Level 138 mmol/L (136-145) Potassium Level 3.8 mmol/L (3.5-5.1) Chloride Level 104 mmol/L (98-107) Carbon Dioxide Level 23 mmol/L (21-32) Anion Gap 11 (6-14) Blood Urea Nitrogen 22 mg/dL (8-26) Creatinine 1.2 mg/dL (0.7-1.3) Estimated GFR (Cockcroft-Gault) 63.8 BUN/Creatinine Ratio 18 (6-20) Glucose Level 95 mg/dL (70-99) Calcium Level 9.1 mg/dL (8.5-10.1) Total Bilirubin 0.3 mg/dL (0.2-1.0) Aspartate Amino Transf (AST/SGOT) 9 U/L (15-37) Alanine Aminotransferase (ALT/SGPT) 7 U/L (16-63) Alkaline Phosphatase 62 U/L (46-116) Total Protein 7.1 g/dL (6.4-8.2) Albumin 3.5 g/dL (3.4-5.0) Albumin/Globulin Ratio 1.0 (1.0-1.7) Brief Hospital Course Mr. Kimbrough is a 49 old with bipolar and schizophrenia was on his way to [facility] but rejected admit bec of SBP > 220. He does not take any BP meds, asymptomatic, ECHO normal, Co managed with cards. NOw on lisinopriol 40. HCTZ 25 and coreg 3.125 (cant in c bec of bradycarrdia 60s. ANother option would be coreg, But i just inc his HCTZ today,. CAn go to [facility] once sbp < 160. HE does drink etoh too and smokes, but no intoxication or withdrawals in his stay DIspO; I COnsults: cards Proc; echo normal EF dc 32mins Discharge Information Condition at Discharge: Improved, Stable Disposition/Orders: D/C to Home Scheduled Atorvastatin Calcium (Atorvastatin Calcium) 20 Mg Tablet, 20 MG PO QHS for lipids, #60 Prescribed by: MARSHA GAONA on 09/27/19 6680 Carvedilol (Coreg ) 3.125 Mg Tablet, 3.125 MG PO BIDWMEALS for CARDIAC for 60 Days, #120 Prescribed by: MARSHA GAONA on 09/27/19756 Hydrochlorothiazide (Hydrochlorothiazide Tablet ) 25 Mg Tablet, 25 MG PO DAILY for DIURETIC for 60 Days, #60 Ref 0 Prescribed by: MARSHA GAONA on 09/27/197 Lisinopril (Lisinopril) 40 Mg Tablet, 40 MG PO DAILY for htn, #60 Prescribed by: MARSHA GAONA on 09/27/19755 Paliperidone Palmitate ([facility] Sustenna) 117 Mg/0.75 Ml Disp.syrin, 0.75 ML IM QMONTH for schzophrenic for 30 Days, #1 Ref 0 (Reported) Entered as Reported by: Ashley Lee on 09/25/1936 Last Action: HELD on 09/25/19919 by MARSHA GAONA Scheduled PRN Acetaminophen (Tylenol) 325 Mg Tablet, 650 MG PO PRN Q6HRS PRN for PAIN, (Reported) Entered as Reported by: Ashley Lee on 09/25/19128 Last Action: Continued on 09/25/19919 by MARSHA GAONA Discontinued Medications Ibuprofen (Ibuprofen) 400 Mg Tablet, 400 MG PO PRN Q6HRS PRN for INFLAMMATION, (Reported) Entered as Reported by: Ashley Lee on 09/25/19128 Last Action: HELD on 09/25/19919 by MARSHA ERALY MD Sep 27, 2019 09:06
[2019-09-27] MEDS: amLODIPine BESYLATE 5 MG TABLET PO SCH (13:52)
[2019-09-27] MEDS: ATORVASTATIN CALCIUM 20 MG TABLET PO SCH (20:08)
[2019-09-28 03:00] VITALS: BP 147/101
[2019-09-28 05:39] LABS: BASO # 0.1 x10^3/uL (0.0-0.2); BASO % 1 % (0-3); EOS # 0.2 x10^3/uL (0.0-0.7); EOS % 3 % (0-3); HEMATOCRIT 45.5 % (39.0-53.0); HEMOGLOBIN 15.6 g/dL (13.0-17.5); LYMPH # 2.4 x10^3/uL (1.0-4.8); LYMPH % 28 % (24-48); MEAN CORPUSCULAR HEMOGLOBIN 30 pg (25-35); MEAN CORPUSCULAR HGB CONC 34 g/dL (31-37); MEAN CORPUSCULAR VOLUME 88 fL (79-100); MONO # 0.8 x10^3/uL (0.0-1.1); MONO % 9 % (0-9); NEUT # 5.3 x10^3/uL (1.8-7.7); NEUT % 60 % (31-73); PLATELET COUNT 270 x10^3/uL (140-400); RED BLOOD COUNT 5.19 x10^6/uL (4.30-5.70); RED CELL DISTRIBUTION WIDTH 14.1 % (11.5-14.5); WHITE BLOOD COUNT 8.8 x10^3/uL (4.0-11.0)
[2019-09-28 05:45] LABS: ALBUMIN/GLOBULIN RATIO 1.1 (1.0-1.7); CALCIUM 9.5 mg/dL (8.5-10.1); CREATININE 1.4 mg/dL (0.7-1.3); GFR 53.4; POTASSIUM 4.2 mmol/L (3.5-5.1); TOTAL BILIRUBIN 0.4 mg/dL (0.2-1.0); TOTAL PROTEIN 7.8 g/dL (6.4-8.2)
[2019-09-28 07:00] VITALS: BP 162/101
[2019-09-28] MEDS: ASPIRIN ENTERIC COATED 81 MG TABLET.DR. PO SCH (08:29)
[2019-09-28] MEDS ORDERED: AMLO5TAB4 PO (08:29)
[2019-09-28] MEDS: hydroCHLOROthiazide 25 MG TABLET PO SCH (08:30)
[2019-09-28] MEDS: CARVEDILOL 6.25 MG TABLET. PO SCH ×2 (08:30→16:28)
[2019-09-28] MEDS: amLODIPine BESYLATE 5 MG TABLET PO SCH (08:31)
[2019-09-28] MEDS: LISINOPRIL 20 MG TABLET PO SCH (08:33)
--- NOTE | 2019-09-28 09:35 | PDOC ---
Provider Note Provider Note COuld not dc yesterday as BP 170s systolic still despite 3 maxed out bP meds Echo ok Asymptomatic I added norvasc 5, he has PCP to ff up with HE was rejected by [facility] bec SBP > 220s on arrival with no sxs PLAN: HOme today, norvasc added on his BP regimen,Could not further inc BB bec HR 60s Ff up PCP 1 month OK to go to I today, homeless, requests cab pass Dw RN ata Echo normal THis is an addendum to dc summ done yesterday 09/27/19 MARSHA GAONA MD Sep 28, 2019 09:35
[2019-09-28 11:32] VITALS: BP 150/92
[2019-09-28 15:00] VITALS: BP 154/98
--- NOTE | 2019-09-28 18:39 | NUR ---
Pt was to be discharged to [facility] this sift. I spoke to Junaid twice and Charis ARMENTA once. All packet information was faxed and fax confirmation was in the chart. all medication scripts told to the facility. Was told to call back at 1500 with latest vitals. Called at 1530 and let Charis know the pts BP was 154/98 and they did not have the ability to get all of the scripts for the pt until tomorrow and all they had was Clonidine on hand. Was told to have staff call in the morning with recent vitals and update. The pt will need a cab pass as well. Explained the situation to the pt. Patient felt better staying over another night. Dr. Henriquez notified and discharged cancelled. [employer] notified as well.
[2019-09-28 19:00] VITALS: BP 136/86
[2019-09-28] MEDS: ATORVASTATIN CALCIUM 20 MG TABLET PO SCH (20:33)
[2019-09-28 23:00] VITALS: BP 136/84
[2019-09-29 03:00] VITALS: BP 129/85
[2019-09-29 07:24] VITALS: BP 121/79
[2019-09-29 07:48] LABS: BASO % 0 % (0-3); EOS # 0.2 x10^3/uL (0.0-0.7); EOS % 3 % (0-3); HEMOGLOBIN 15.4 g/dL (13.0-17.5); LYMPH # 2.5 x10^3/uL (1.0-4.8); LYMPH % 30 % (24-48); MEAN CORPUSCULAR HEMOGLOBIN 30 pg (25-35); MEAN CORPUSCULAR HGB CONC 34 g/dL (31-37); MEAN CORPUSCULAR VOLUME 87 fL (79-100); MONO # 0.7 x10^3/uL (0.0-1.1); MONO % 8 % (0-9); NEUT % 59 % (31-73); PLATELET COUNT 261 x10^3/uL (140-400); RED BLOOD COUNT 5.15 x10^6/uL (4.30-5.70); RED CELL DISTRIBUTION WIDTH 14.2 % (11.5-14.5); WHITE BLOOD COUNT 8.5 x10^3/uL (4.0-11.0)
[2019-09-29 08:08] LABS: CALCIUM 9.5 mg/dL (8.5-10.1); CREATININE 1.3 mg/dL (0.7-1.3); GFR 58.2; POTASSIUM 4.2 mmol/L (3.5-5.1); TOTAL BILIRUBIN 0.3 mg/dL (0.2-1.0)
[2019-09-29] MEDS: ASPIRIN ENTERIC COATED 81 MG TABLET.DR. PO SCH (08:08)
[2019-09-29] MEDS: NICOTINE 21MG PATCH. TD PRN (08:08)
[2019-09-29] MEDS: hydroCHLOROthiazide 25 MG TABLET PO SCH (08:08)
[2019-09-29] MEDS: CARVEDILOL 6.25 MG TABLET. PO SCH (08:08)
[2019-09-29] MEDS: LISINOPRIL 20 MG TABLET PO SCH (08:09)
[2019-09-29 08:11] VITALS: BP 121/79
[2019-09-29] MEDS: amLODIPine BESYLATE 5 MG TABLET PO SCH (08:11)
--- NOTE | 2019-09-29 08:39 | PDOC ---
PROGRESS NOTES Chief Complaint Chief Complaint HTN urgency Elevated troponin Suspect CKD 3 Hx of CVA Bipolar disorder Noncompliance Homelessness Tobaccoism History of Present Illness History of Present Illness Reports that he presented to the ER because of SI and they found that his BP was high on the admission. Pt reports having head pain in the occipital region of his head when the event occurred but was otherwise asymptomatic. Pt reports that he has done well with Invega SPRING in the past and would like to restart it. 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 Reports feeling better since being hospitalized, is still willing to go to [facility] once SPRING is restarted. Started on amlodipine in addition to hydralazine and carvedilol with better BP control. HTN emergency abated, likely his troponin was demand ischemia 2/2 BP issues. Vitals Vitals Vital Signs Date Time Temp Pulse Resp B/P (MAP) Pulse Ox O2 Delivery O2 Flow Rate FiO2 09/29/19 08:11 67 121/79 09/29/19 07:31 Room Air 09/29/19 07:24 97.5 20 99 97.5 Physical Exam General: Alert, Oriented X3, Cooperative, No acute distress Heart: Regular rate (SR), Normal S1, Normal S2, Other (S4; 3/6 systolic murmur to SELINA border) Lungs: Clear Abdomen: Normal bowel sounds, Soft, No tenderness Extremities: No cyanosis, No edema Skin: No breakdown, No significant lesion Labs LABS Laboratory Tests Test 09/29/19 07:00 White Blood Count 8.5 x10^3/uL (4.0-11.0) Red Blood Count 5.15 x10^6/uL (4.30-5.70) Hemoglobin 15.4 g/dL (13.0-17.5) Hematocrit 45.0 % (39.0-53.0) Mean Corpuscular Volume 87 fL (79-100) Mean Corpuscular Hemoglobin 30 pg (25-35) Mean Corpuscular Hemoglobin Concent 34 g/dL (31-37) Red Cell Distribution Width 14.2 % (11.5-14.5) Platelet Count 261 x10^3/uL (140-400) Neutrophils (%) (Auto) 59 % (31-73) Lymphocytes (%) (Auto) 30 % (24-48) Monocytes (%) (Auto) 8 % (0-9) Eosinophils (%) (Auto) 3 % (0-3) Basophils (%) (Auto) 0 % (0-3) Neutrophils # (Auto) 5.0 x10^3/uL (1.8-7.7) Lymphocytes # (Auto) 2.5 x10^3/uL (1.0-4.8) Monocytes # (Auto) 0.7 x10^3/uL (0.0-1.1) Eosinophils # (Auto) 0.2 x10^3/uL (0.0-0.7) Basophils # (Auto) 0.0 x10^3/uL (0.0-0.2) Sodium Level 138 mmol/L (136-145) Potassium Level 4.2 mmol/L (3.5-5.1) Chloride Level 102 mmol/L (98-107) Carbon Dioxide Level 27 mmol/L (21-32) Anion Gap 9 (6-14) Blood Urea Nitrogen 24 mg/dL (8-26) Creatinine 1.3 mg/dL (0.7-1.3) Estimated GFR (Cockcroft-Gault) 58.2 BUN/Creatinine Ratio 18 (6-20) Glucose Level 99 mg/dL (70-99) Calcium Level 9.5 mg/dL (8.5-10.1) Total Bilirubin 0.3 mg/dL (0.2-1.0) Aspartate Amino Transf (AST/SGOT) 12 U/L (15-37) Alanine Aminotransferase (ALT/SGPT) 16 U/L (16-63) Alkaline Phosphatase 67 U/L (46-116) Total Protein 8.0 g/dL (6.4-8.2) Albumin 4.0 g/dL (3.4-5.0) Albumin/Globulin Ratio 1.0 (1.0-1.7) Comment Review of Relevant I have reviewed the following items lea (where applicable) has been applied. Labs Laboratory Tests Test 09/28/19 05:00 09/29/19 07:00 White Blood Count 8.8 x10^3/uL (4.0-11.0) 8.5 x10^3/uL (4.0-11.0) Red Blood Count 5.19 x10^6/uL (4.30-5.70) 5.15 x10^6/uL (4.30-5.70) Hemoglobin 15.6 g/dL (13.0-17.5) 15.4 g/dL (13.0-17.5) Hematocrit 45.5 % (39.0-53.0) 45.0 % (39.0-53.0) Mean Corpuscular Volume 88 fL (79-100) 87 fL (79-100) Mean Corpuscular Hemoglobin 30 pg (25-35) 30 pg (25-35) Mean Corpuscular Hemoglobin Concent 34 g/dL (31-37) 34 g/dL (31-37) Red Cell Distribution Width 14.1 % (11.5-14.5) 14.2 % (11.5-14.5) Platelet Count 270 x10^3/uL (140-400) 261 x10^3/uL (140-400) Neutrophils (%) (Auto) 60 % (31-73) 59 % (31-73) Lymphocytes (%) (Auto) 28 % (24-48) 30 % (24-48) Monocytes (%) (Auto) 9 % (0-9) 8 % (0-9) Eosinophils (%) (Auto) 3 % (0-3) 3 % (0-3) Basophils (%) (Auto) 1 % (0-3) 0 % (0-3) Neutrophils # (Auto) 5.3 x10^3/uL (1.8-7.7) 5.0 x10^3/uL (1.8-7.7) Lymphocytes # (Auto) 2.4 x10^3/uL (1.0-4.8) 2.5 x10^3/uL (1.0-4.8) Monocytes # (Auto) 0.8 x10^3/uL (0.0-1.1) 0.7 x10^3/uL (0.0-1.1) Eosinophils # (Auto) 0.2 x10^3/uL (0.0-0.7) 0.2 x10^3/uL (0.0-0.7) Basophils # (Auto) 0.1 x10^3/uL (0.0-0.2) 0.0 x10^3/uL (0.0-0.2) Sodium Level 139 mmol/L (136-145) 138 mmol/L (136-145) Potassium Level 4.2 mmol/L (3.5-5.1) 4.2 mmol/L (3.5-5.1) Chloride Level 102 mmol/L (98-107) 102 mmol/L (98-107) Carbon Dioxide Level 27 mmol/L (21-32) 27 mmol/L (21-32) Anion Gap 10 (6-14) 9 (6-14) Blood Urea Nitrogen 26 mg/dL (8-26) 24 mg/dL (8-26) Creatinine 1.4 mg/dL (0.7-1.3) 1.3 mg/dL (0.7-1.3) Estimated GFR (Cockcroft-Gault) 53.4 58.2 BUN/Creatinine Ratio 19 (6-20) 18 (6-20) Glucose Level 97 mg/dL (70-99) 99 mg/dL (70-99) Calcium Level 9.5 mg/dL (8.5-10.1) 9.5 mg/dL (8.5-10.1) Total Bilirubin 0.4 mg/dL (0.2-1.0) 0.3 mg/dL (0.2-1.0) Aspartate Amino Transf (AST/SGOT) 10 U/L (15-37) 12 U/L (15-37) Alanine Aminotransferase (ALT/SGPT) 8 U/L (16-63) 16 U/L (16-63) Alkaline Phosphatase 68 U/L (46-116) 67 U/L (46-116) Total Protein 7.8 g/dL (6.4-8.2) 8.0 g/dL (6.4-8.2) Albumin 4.0 g/dL (3.4-5.0) 4.0 g/dL (3.4-5.0) Albumin/Globulin Ratio 1.1 (1.0-1.7) 1.0 (1.0-1.7) Laboratory Tests Test 09/29/19 07:00 White Blood Count 8.5 x10^3/uL (4.0-11.0) Red Blood Count 5.15 x10^6/uL (4.30-5.70) Hemoglobin 15.4 g/dL (13.0-17.5) Hematocrit 45.0 % (39.0-53.0) Mean Corpuscular Volume 87 fL (79-100) Mean Corpuscular Hemoglobin 30 pg (25-35) Mean Corpuscular Hemoglobin Concent 34 g/dL (31-37) Red Cell Distribution Width 14.2 % (11.5-14.5) Platelet Count 261 x10^3/uL (140-400) Neutrophils (%) (Auto) 59 % (31-73) Lymphocytes (%) (Auto) 30 % (24-48) Monocytes (%) (Auto) 8 % (0-9) Eosinophils (%) (Auto) 3 % (0-3) Basophils (%) (Auto) 0 % (0-3) Neutrophils # (Auto) 5.0 x10^3/uL (1.8-7.7) Lymphocytes # (Auto) 2.5 x10^3/uL (1.0-4.8) Monocytes # (Auto) 0.7 x10^3/uL (0.0-1.1) Eosinophils # (Auto) 0.2 x10^3/uL (0.0-0.7) Basophils # (Auto) 0.0 x10^3/uL (0.0-0.2) Sodium Level 138 mmol/L (136-145) Potassium Level 4.2 mmol/L (3.5-5.1) Chloride Level 102 mmol/L (98-107) Carbon Dioxide Level 27 mmol/L (21-32) Anion Gap 9 (6-14) Blood Urea Nitrogen 24 mg/dL (8-26) Creatinine 1.3 mg/dL (0.7-1.3) Estimated GFR (Cockcroft-Gault) 58.2 BUN/Creatinine Ratio 18 (6-20) Glucose Level 99 mg/dL (70-99) Calcium Level 9.5 mg/dL (8.5-10.1) Total Bilirubin 0.3 mg/dL (0.2-1.0) Aspartate Amino Transf (AST/SGOT) 12 U/L (15-37) Alanine Aminotransferase (ALT/SGPT) 16 U/L (16-63) Alkaline Phosphatase 67 U/L (46-116) Total Protein 8.0 g/dL (6.4-8.2) Albumin 4.0 g/dL (3.4-5.0) Albumin/Globulin Ratio 1.0 (1.0-1.7) Medications Current Medications Clonidine HCl (Catapres) 0.1 mg 1X ONCE PO Last administered on 09/24/19at 22:44; Start 09/24/19 at 22:30; Stop 09/24/19 at 22:31; Status DC Labetalol HCl (Normodyne Iv Push) 10 mg 1X ONCE IVP Last administered on 09/24/19at 22:45; Start 09/24/19 at 22:30; Stop 09/24/19 at 22:31; Status DC Aspirin (Justice Aspirin) 325 mg 1X ONCE PO Last administered on 09/24/19at 23:20 ; Start 09/24/19 at 23:30; Stop 09/24/19 at 23:31; Status DC Hydralazine HCl (Apresoline Inj) 20 mg 1X ONCE IVP Last administered on 09/24/19at 23:32; Start 09/24/19 at 23:30; Stop 09/24/19 at 23:31; Status DC Hydralazine HCl (Apresoline Inj) 10 mg PRN Q4HRS PRN IVP ELEVATED BP, SEE COMMENTS Last administered on 09/25/19at 09:06; Start 09/24/19 at 23:30; Stop 09/25/19 at 09:24; Status DC Influenza Virus Vaccine Quadrival (Afluria Quad 2019-20 (3yr Up) Syringe) 0.5 ml ONCE ONCE VAX IM Last administered on 09/25/19at 09:07; Start 09/25/19 at 09:00; Stop 09/25/19 at 09:01; Status DC Hydralazine HCl (Apresoline Inj) 10 mg PRN Q4HRS PRN IVP ELEVATED BP, SEE COMMENTS Last administered on 09/27/19at 12:22; Start 09/25/19 at 09:30 Acetaminophen (Tylenol) 650 mg PRN Q6HRS PRN PO PAIN; Start 09/25/19 at 09:30 Lisinopril (Prinivil) 10 mg DAILY PO Last administered on 09/26/19at 09:08; St art 09/25/19 at 10:45; Stop 09/26/19 at 12:03; Status DC Hydrochlorothiazide (Microzide) 12.5 mg DAILY PO Last administered on 09/26/19at 09:08; Start 09/25/19 at 10:45; Stop 09/27/19 at 07:54; Status DC Chlordiazepoxide (Librium) 25 mg PRN Q6HRS PRN PO ANXIETY / AGITATION; Start 09/25/19 at 10:45 Nicotine (Nicoderm Cq 21mg) 1 patch PRN DAILY PRN TD SMOKING CESSATION Last administered on 09/29/19at 08:08; Start 09/25/19 at 10:45 Carvedilol (Coreg) 6.25 mg BIDWMEALS PO Last administered on 09/26/19at 09:08; Start 09/25/19 at 17:00; Stop 09/26/19 at 12:03; Status DC Aspirin (Ecotrin) 81 mg DAILYWBKFT PO Last administered on 09/29/19at 08:08; Start 09/26/19 at 08:00 Atorvastatin Calcium (Lipitor) 20 mg QHS PO Last administered on 09/28/19at 20:33; Start 09/25/19 at 21:00 Potassium Chloride (Klor-Con) 40 meq 1X ONCE PO Last administered on 09/25/19at 17:39; Start 09/25/19 at 17:00; Stop 09/25/19 at 17:01; Status DC Carvedilol (Coreg) 3.125 mg BIDWMEALS PO Last administered on 09/29/19at 08:08; Start 09/26/19 at 17:00 Lisinopril (Prinivil) 40 mg DAILY PO Last administered on 09/29/19at 08:09; Start 09/27/19 at 09:00 Lisinopril (Prinivil) 30 mg 1X ONCE PO Last administered on 09/26/19at 12:24; Start 09/26/19 at 12:15; Stop 09/26/19 at 12:16; Status DC Hydrochlorothiazide (Microzide) 25 mg DAILY PO ; Start 09/27/19 at 08:00; Status Cancel Labetalol HCl (Normodyne Iv Push) 20 mg PRN Q2HR PRN IVP HYPERTENSION; Start 09/27/19 at 08:00 Labetalol HCl (Normodyne Iv Push) 20 mg 1X ONCE IVP Last administered on 09/27/19at 11:35; Start 09/27/19 at 08:00; Stop 09/27/19 at 08:01; Status DC Hydrochlorothiazide (Hydrodiuril) 25 mg DAILY PO Last administered on 09/29/19at 08:08; Start 09/27/19 at 09:00 Amlodipine Besylate (Norvasc) 5 mg DAILY PO Last administered on 09/29/19at 08:11; Start 09/27/19 at 13:15 Active Scripts Active Norvasc (Amlodipine Besylate) 5 Mg Tablet 1 Tab PO DAILY Hydrochlorothiazide Tablet (Hydrochlorothiazide) 25 Mg Tablet 25 Mg PO DAILY 60 Days Coreg (Carvedilol) 3.125 Mg Tablet 3.125 Mg PO BIDWMEALS 60 Days Lisinopril 40 Mg Tablet 40 Mg PO DAILY Atorvastatin Calcium 20 Mg Tablet 20 Mg PO QHS Reported Tylenol (Acetaminophen) 325 Mg Tablet 650 Mg PO PRN Q6HRS PRN Invega Sustenna (Paliperidone Palmitate) 117 Mg/0.75 Ml Disp.syrin 0.75 Ml IM QMONTH 30 Days Vitals/I & O Vital Sign - Last 24 Hours 09/28/19 09/28/19 09/28/19 09/28/19 11:32 15:00 16:28 19:00 Temp 98.0 98.1 98.0 98.1 Pulse 70 67 70 71 Resp 16 B/P (MAP) 150/92 (111) 154/98 (116) 154/98 136/86 (103) Pulse Ox 96 98 97 O2 Delivery Room Air Room Air Room Air 09/28/19 09/28/19 09/29/19 09/29/19 19:12 23:00 03:00 07:24 Temp 98.0 97.7 97.5 98.0 97.7 97.5 Pulse 68 65 67 Resp 20 16 20 B/P (MAP) 136/84 (101) 129/85 (100) 121/79 (93) Pulse Ox 97 97 99 O2 Delivery Room Air Room Air Room Air Room Air 09/29/19 09/29/19 09/29/19 09/29/19 07:31 08:08 08:09 08:11 Pulse 67 67 67 B/P (MAP) 121/79 121/79 121/79 O2 Delivery Room Air Intake and Output 09/28/19 09/28/19 09/29/19 15:00 23:00 07:00 Intake Total 500 ml 0 ml 0 ml Balance 500 ml 0 ml 0 ml TRINO MURRAY MD Sep 29, 2019 08:39
[2019-09-29] MEDS ORDERED: AMLO5TAB10 PO (09:46)
--- NOTE | 2019-09-29 10:04 | NUR ---
SS following up with discharge planning. SS phoned and faxed clinical and discharge paperwork to [facility], ; fax [phone]. Packet placed on chart. Discharge order on the chart. Pt's RN arranging cab pass for return to [facility].
--- NOTE | 2019-09-29 11:13 | NUR ---
Discharge Note: YASIR GARCIA [address] Discharge instructions and discharge home medications reviewed with Patient and a copy given. All questions have been answered and understanding verbalized. The following instructions and handouts were given: smoking cessation, new home medications Discontinued lines and drains: Peripheral IV intact. [facility] ambulated off unit and d/c with [facility] transporter. Dc paper work given to pt and transporter.
== END 2019-09-29 11:09 | disposition short-term general hospital (02) | DRG 305 ==
LOC: ER 21:48 → 2 SOUTH 23:00
PROVIDERS: ADMIT Internal Medicine; ATTEND Internal Medicine
DX: I16.0 Hypertensive urgency (principal); I24.8 Other forms of acute ischemic heart disease; F20.9 Schizophrenia, unspecified; F31.9 Bipolar disorder, unspecified; F17.210 Nicotine dependence, cigarettes, uncomplicated; M19.90 Unspecified osteoarthritis, unspecified site; I12.9 Hypertensive chronic kidney disease with stage 1 through stage 4 chronic kidney disease, or unspecified chronic kidney disease; N18.3 Chronic kidney disease, stage 3 (moderate); Z88.5 Allergy status to narcotic agent; Z59.0 Homelessness; Z91.19 Patient's noncompliance with other medical treatment and regimen; Z86.73 Personal history of transient ischemic attack (TIA), and cerebral infarction without residual deficits; Z82.49 Family history of ischemic heart disease and other diseases of the circulatory system
CPT/HCPCS: 36415; 80048; 80053; 80061; 82553; 83735; 84443; 84484; 85025; 90471; 90686; 93005; 93306; 96374; 96375; 99406; G0480; J0360; J3490; 99285-25; G0378